=== PATIENT | male | born 2000 | race Caucasian/White ===

== ENCOUNTER 2022-03-13 15:23 | Emergency (ER) | payer MEDICAID ==
[~2022-03-13] VITALS: Ht 177.8 cm; Wt 77.3 kg
[2022-03-13 16:54] VITALS: BP 143/85
[2022-03-13] MEDS ORDERED: MUPI22OI30 TOP (17:21)
== END 2022-03-13 17:33 | disposition home or self-care (01) ==
LOC: ER 15:24
DX: J01.90 Acute sinusitis, unspecified (principal)
CPT/HCPCS: 99283